=== PATIENT | male | born 1990 | race Caucasian/White ===

== ENCOUNTER 2016-11-25 13:47 | Emergency (ER) | payer OTHER ==
[~2016-11-25] VITALS: Ht 190.5 cm; Wt 90.9 kg
[2016-11-25 13:47] VITALS: BP 156/83
[2016-11-25] MEDS ORDERED: PRED20TA PO (15:08)
[2016-11-25] MEDS ORDERED: BENA25CA4 PO (15:08)
[2016-11-25] MEDS ORDERED: predniSONE 20 MG TAB PO ONE (15:15)
[2016-11-25] MEDS ORDERED: diphenhydrAMINE 50 MG CAP PO ONE (15:15)
== END 2016-11-25 15:17 | disposition home or self-care (01) ==
LOC: M ED 13:47
DX: R22.1 Localized swelling, mass and lump, neck (principal); T50.B95A Adverse effect of other viral vaccines, initial encounter; Y92.9 Unspecified place or not applicable; Y93.9 Activity, unspecified; Z87.891 Personal history of nicotine dependence